=== PATIENT | male | born 1940 ===

== ENCOUNTER → 2017-07-17 | Outpatient (CLI) | payer MEDICARE ==
[~2017-07-17] MED LIST: ALLO100 PO; AMLO10 PO; ASPI81CH PO; CEPH250A; CEPH250A PO; CEPH500; CHOL10002 PO; CLON.1 PO; FISH1000 PO; FOSI10; FURO20 PO; FURO40 PO; GLIP5 PO; Humalog100 UNIT/1 SC; IBUP800; INS70/30I; INSU7030P; K-Tab10 MEQ PO; LOSA50 PO; METF500; METF500 PO; Prinivil10 MG PO; TOUJEO SOL300 UNIT/1 SC; Zithromax250 MG PO; [UNRECOGNIZED DRUG - OTHER]
[2017-07-17 12:36] LABS: Hematocrit 35.3 % (37.0-53.0); Hemoglobin 11.7 g/dL (13.5-17.5)
[2017-07-17 14:25] LABS: Creatinine, Urine Random 54.2 mg/dL (27.00-270.00)
[2017-07-17 14:33] LABS: Protein, Urine Random 314.8 mg/dL (0.0-11.9)
[2017-07-17 15:22] LABS: Anion Gap 10 mmol/L (6-16); Blood Urea Nitrogen 60 mg/dL (8-24); Bun/Creatinine Ratio 22.3 (12.0-20.0); CO2, Blood 24 mmol/L (21-32); Calcium, Blood 8.3 mg/dL (8.5-10.1); Chloride, Blood 102 mmol/L (98-108); Creatinine, Blood 2.69 mg/dL (0.60-1.20); Glomerular Filtration Rate 25 (60-); Glucose, Blood 278 mg/dL (70-99); Phosphorus, Blood 4.6 mg/dL (2.5-4.9); Potassium, Blood 5.2 mmol/L (3.5-5.5); Sodium, Blood 136 mmol/L (136-145)
== END | disposition home or self-care (01) ==
LOC: OLS 12:08
PROVIDERS: Internal Medicine
DX: N18.3 Chronic kidney disease, stage 3 (moderate) (principal); D63.1 Anemia in chronic kidney disease; E55.9 Vitamin D deficiency, unspecified; N25.81 Secondary hyperparathyroidism of renal origin
CPT/HCPCS: 36415; 80069; 82306; 82570; 83970; 84156; 85014; 85018

== ENCOUNTER 2019-01-11 09:44 | Day surgery (SDC) | payer MEDICARE ==
[~2019-01-11] VITALS: Ht 170.2 cm; Wt 80.3 kg
[~2019-01-11 09:44] MED LIST changes: +Aspirin EC81 MG PO; +METO25ER PO; +Norvasc10 MG PO; +TORSE20 PO; +VITAMIN D32000 UNI1 PO
--- NOTE | 2019-01-11 14:01 | NUR ---
01/11/19 1401 Flora Puri PT WAS GIVEN RX W/INSTRUCTIONS BUT STATED WASNT GOING TO FILL IT. GIVEN ICE PACK AND SLING AND PUT ON HIM W/INSTRUCTIONS FOR USE. THROUGH SPEAKING W/PT HE APPEARED TO WANT TO DO HIS OWN THING. CAREGIVER CAROLA WAS PRESENT FOR INSTRUCTIONS WELL
== END 2019-01-11 12:55 | disposition home or self-care (01) ==
LOC: ORSCSDS 09:44
PROVIDERS: Orthopaedic Surgery
PROC: 0LB80ZZ Excision of Left Hand Tendon, Open Approach (ICD-10-PCS; principal; 2019-01-11 11:00)
DX: M67.442 Ganglion, left hand (principal); E11.40 Type 2 diabetes mellitus with diabetic neuropathy, unspecified; E11.22 Type 2 diabetes mellitus with diabetic chronic kidney disease; I12.9 Hypertensive chronic kidney disease with stage 1 through stage 4 chronic kidney disease, or unspecified chronic kidney disease; N18.4 Chronic kidney disease, stage 4 (severe); Z79.4 Long term (current) use of insulin; Z79.899 Other long term (current) drug therapy
CPT/HCPCS: 82947; 88304; J0690; J2250; J2405; J7030; J7120

== ENCOUNTER 2020-03-04 11:12 | Day surgery (SDC) | payer MEDICARE ==
[~2020-03-04] VITALS: Ht 165.1 cm; Wt 77.0 kg
[~2020-03-04 11:12] MED LIST changes: +CALCITRIOL0.25 MC1 PO; +HYDR10; +TOUJEO SOL300 UNIT/2 SQ
--- NOTE | 2020-03-04 11:53 | NUR ---
CBG 81 POST ORANGE JUICE. -LIGHTHEADEDNESS AT THIS TIME.
--- NOTE | 2020-03-04 14:10 | NUR ---
TO RECOVERY ROOM VIA RECLINER. PT AWAKE AND ALERT. PERMA CATH SITE DRY AND INTACT.
--- NOTE | 2020-03-04 14:30 | NUR ---
EATING LUNCH. SITE UNCHANGED.
--- NOTE | 2020-03-04 15:00 | NUR ---
DISCHARGE INSTRUCTIONS GIVEN WITH VERBAL AND WRITTEN UNDERSTANDING.
--- NOTE | 2020-03-04 15:15 | NUR ---
DRESSING FOR DISCHARGE. IV REMOVED INTACT. 2X2, COBAN AND MANUAL PRESSURE APPLIED. PERMACATH DRESSING DRY AND INTACT.
--- NOTE | 2020-03-04 15:30 | NUR ---
DISCHARGED HOME VIA WHEELCHAIR. FRIEND DRIVING.
== END 2020-03-04 15:30 | disposition home or self-care (01) ==
LOC: MHTC 11:12
DX: I12.0 Hypertensive chronic kidney disease with stage 5 chronic kidney disease or end stage renal disease (principal); E11.22 Type 2 diabetes mellitus with diabetic chronic kidney disease; N18.6 End stage renal disease; E78.5 Hyperlipidemia, unspecified; E11.40 Type 2 diabetes mellitus with diabetic neuropathy, unspecified; Z87.891 Personal history of nicotine dependence; Z88.8 Allergy status to other drugs, medicaments and biological substances; Z79.82 Long term (current) use of aspirin; Z79.899 Other long term (current) drug therapy; Z79.4 Long term (current) use of insulin
CPT/HCPCS: 36558; 76937; 77001; 82947; 99152; C1750; C1769; C1894; J1644; J2250; J3010; J7030; J7042

== ENCOUNTER 2020-06-24 13:37 | Day surgery (SDC) | payer MEDICARE ==
[~2020-06-24] VITALS: Ht 165.1 cm; Wt 76.0 kg
[~2020-06-24 13:37] MED LIST changes: +GABA100 PO; +HUMALOG100 UNIT/1 SC; -HYDR10; +HYDR10 PO
[2020-06-24 14:08] LABS: BASOPHILS ABSOLUTE AUTO 0.04 K/mm3 (0.00-0.23); BASOPHILS PERCENT AUTO 1 % (0-2); EOSINOPHILS ABSOLUTE AUTO 0.37 K/mm3 (0.00-0.68); EOSINOPHILS PERCENT AUTO 6 % (0-6); Hemoglobin 12.2 g/dL (13.5-17.5); IMMATURE GRAN ABSOLUTE AUTO 0.04 K/mm3 (0.00-0.10); IMMATURE GRAN PERCENT AUTO 1 % (0-1); LYMPHOCYTES ABSOLUTE AUTO 1.17 K/mm3 (0.84-5.20); LYMPHOCYTES PERCENT AUTO 17 % (21-46); MONOCYTES PERCENT AUTO 9 % (4-13); Mean Corpuscular HGB 34.5 pg (26.0-34.0); Mean Corpuscular HGB Conc 33.9 g/dL (31.5-36.5); Mean Corpuscular Volume 102 fL (80-100); Mean Platelet Volume 9.5 fL (9.1-12.4); NEUTROPHILS ABSOLUTE AUTO 4.53 K/mm3 (1.96-9.15); NEUTROPHILS PERCENT AUTO 67 % (41-73); Platelet Count 237 K/mm3 (150-400); RDW Coefficient Variation 13.2 % (11.7-14.2); RDW Standard Deviation 49.6 fL (35.1-46.3); Red Blood Cell Count 3.54 M/mm3 (4.30-5.90); White Blood Cell Count 6.75 K/mm3 (4.00-11.30)
[2020-06-24 14:22] LABS: Bun/Creatinine Ratio 13.7 (12.0-20.0); Calcium, Blood 9.2 mg/dL (8.5-10.1); Creatinine, Blood 4.24 mg/dL (0.60-1.20)
[2020-06-24 14:24] LABS: International Normalized Ratio 0.95; Prothrombin Time Results 10.2 Sec (9.7-11.5)
[2020-06-24] MEDS ORDERED: CLOP75 PO (16:20)
--- NOTE | 2020-06-24 16:39 | NUR ---
PT VERBALIZED UNDERSTANDING OF D/C INSTRUCTIONS. PAPERWORK PROVIDED IN FOLDER ALONG WITH ORDER FOR FOLLOW UP ULTRASOUND. NEW PRESCRIPTION CALLED INTO PHARMACY. PT LEFT ARM PLACED INTO SLING ORDERED. ASSISTED WITH GETTING DRESSED, TAKEN OUT TO PRIVATE VEHICLE VIA W/C. NO ACUTE DISTRESS NOTED. VSS.
--- NOTE | 2020-06-24 16:45 | NUR ---
IV REMOVED FROM RAC WITH CATH INTACT, PRESSURE DRESSING APPLIED.
== END 2020-06-24 16:20 | disposition home or self-care (01) ==
LOC: MHTC 13:37
PROVIDERS: Radiology Diagnostic Radiology
DX: I12.0 Hypertensive chronic kidney disease with stage 5 chronic kidney disease or end stage renal disease (principal); E11.22 Type 2 diabetes mellitus with diabetic chronic kidney disease; N18.6 End stage renal disease; Z99.2 Dependence on renal dialysis; E11.40 Type 2 diabetes mellitus with diabetic neuropathy, unspecified; E78.5 Hyperlipidemia, unspecified; M10.9 Gout, unspecified; M19.90 Unspecified osteoarthritis, unspecified site; Z87.891 Personal history of nicotine dependence; Z88.8 Allergy status to other drugs, medicaments and biological substances
CPT/HCPCS: 64415; 80048; 82947; 85025; 85610; A9270; C1725; C1769; C1889; C1894; G2170; J2250; J3010; J7042

== ENCOUNTER → 2020-06-30 | Outpatient (CLI) | payer MEDICARE ==
[~2020-06-30] MED LIST changes: +Acetaminophen325 M1 PO; +BASAGLAR K100 UNIT/1 SC; +CLOP75 PO; +LOSA25 PO; +RENVELA800 MG PO; +Rena-Vite Tabl0.8 MG PO; +TOUJEO SOL300 UNIT/2 SC
== END | disposition home or self-care (01) ==
LOC: LAB SHORT 08:37 → LAB 08:37
DX: Z03.89 Encounter for observation for other suspected diseases and conditions ruled out (principal)
CPT/HCPCS: 89060

== ENCOUNTER 2020-08-20 11:36 | Inpatient (IN) | payer MEDICARE ==
[~2020-08-20] VITALS: Ht 167.6 cm; Wt 77.2 kg
[~2020-08-20 11:36] MED LIST changes: -Acetaminophen325 M1 PO; -BASAGLAR K100 UNIT/1 SC; -LOSA25 PO; -RENVELA800 MG PO; -Rena-Vite Tabl0.8 MG PO; -TOUJEO SOL300 UNIT/2 SC
[2020-08-20] MEDS ORDERED: BASAGLAR K100 UNIT/1 SC (12:05)
[2020-08-20] MEDS ORDERED: LOSA25 PO (12:06)
[2020-08-20] MEDS ORDERED: METO25ER PO (12:07)
[2020-08-20 13:47] LABS: BASOPHILS ABSOLUTE AUTO 0.04 K/mm3 (0.00-0.23); BASOPHILS PERCENT AUTO 1 % (0-2); EOSINOPHILS PERCENT AUTO 2 % (0-6); Hematocrit 32.3 % (37.0-53.0); Hemoglobin 10.6 g/dL (13.5-17.5); IMMATURE GRAN ABSOLUTE AUTO 0.01 K/mm3 (0.00-0.10); IMMATURE GRAN PERCENT AUTO 0 % (0-1); LYMPHOCYTES ABSOLUTE AUTO 0.71 K/mm3 (0.84-5.20); LYMPHOCYTES PERCENT AUTO 12 % (21-46); MONOCYTES ABSOLUTE AUTO 0.58 K/mm3 (0.16-1.47); MONOCYTES PERCENT AUTO 10 % (4-13); Mean Corpuscular HGB 35.2 pg (26.0-34.0); Mean Corpuscular HGB Conc 32.8 g/dL (31.5-36.5); Mean Corpuscular Volume 107 fL (80-100); Mean Platelet Volume 10.1 fL (9.1-12.4); NEUTROPHILS ABSOLUTE AUTO 4.55 K/mm3 (1.96-9.15); NEUTROPHILS PERCENT AUTO 76 % (41-73); Platelet Count 242 K/mm3 (150-400); RDW Coefficient Variation 15.3 % (11.7-14.2); RDW Standard Deviation 59.9 fL (35.1-46.3); Red Blood Cell Count 3.01 M/mm3 (4.30-5.90); White Blood Cell Count 5.99 K/mm3 (4.00-11.30)
[2020-08-20 14:09] LABS: Albumin, Blood 3.1 g/dL (3.4-5.0); Albumin/Globulin Ratio 0.9 (0.8-1.8); Bilirubin, Total 0.6 mg/dL (0.1-1.0); Bun/Creatinine Ratio 10.5 (12.0-20.0); Calcium, Blood 9.3 mg/dL (8.5-10.1); Creatinine, Blood 4.29 mg/dL (0.60-1.20); Globulin, Blood 3.6 g/dL (2.2-4.0); Potassium, Blood 3.9 mmol/L (3.5-5.5); Total Protein, Blood 6.7 g/dL (6.4-8.2); Troponin I 0.188 ng/mL (0.000-0.040)
[2020-08-20] MEDS ORDERED: Rena-Vite Tabl0.8 MG PO (17:08)
--- NOTE | 2020-08-20 18:42 | NUR ---
PATIENT ARRIVES TO FLOOR ABOUT 1630. ALERT. ORIENTED. PICS TAKEN OF WOUNDS TO FEET.HAD WORSENING SOB WHILE AT DIALYSIS AND ONLY FINISHED 1/2 OF TREATMENT. FISTULA LEFT A/C WITH GOOD THRILL. AYANA Garcia. TELE ON AND PER TECH SR 83 WITH SOME PVC'S. CBG AC/HS. HX ; D.M, ESRD, DIALYSIS ABOUT 3 MONTHS AND ACUTE ON CHRONIC CHF. TROP 0.188 AND SUPPOSE TO REPEAT. HAS NEUROPATHY BLE. PLEASANT. VERY TALKATIVE. HAS STATED AFTER HE SEES HIS FIRST GRANDCHILD NEXT WEEK HE WILL BE STOPPING DIALYSIS. TM
--- NOTE | 2020-08-21 04:00 | NUR ---
PLODDER OPERATOR SUMMARY PT A/O X4. AMBULATES WITH SBA WITH FWW TO BATHROOM. PT STATED HE HAD A HARD TIME BREATHING FOR A FEW MIN WHILE LAYING DOWN FLAT TOWARDS BEGINNING OF THE SHIFT. ONCE PT SAT UP, PT NO LONGER FELT SOB. PT SLEPT WELL. DENIES CHEST PAIN, OTHER PAINS, AND NAUSEA. SHIPWRIGHT HELPER NOTIFIED NURSE THAT PT HAD 12-15 BEATS OF V.TACH. AROUND 0353. PT WAS ASLEEP WHEN THIS HAPPENED. MORNING VITALS TAKEN. VSS. BED ALARM ON, CALL LIGHT WITHIN REACH.
[2020-08-21 07:22] LABS: Hematocrit 29.9 % (37.0-53.0); Mean Corpuscular HGB 35.6 pg (26.0-34.0); Mean Corpuscular HGB Conc 33.4 g/dL (31.5-36.5); Mean Corpuscular Volume 106 fL (80-100); Mean Platelet Volume 10.1 fL (9.1-12.4); Platelet Count 234 K/mm3 (150-400); RDW Standard Deviation 58.3 fL (35.1-46.3); Red Blood Cell Count 2.81 M/mm3 (4.30-5.90); White Blood Cell Count 6.78 K/mm3 (4.00-11.30)
[2020-08-21 07:33] LABS: Albumin, Blood 3.1 g/dL (3.4-5.0); Albumin/Globulin Ratio 0.9 (0.8-1.8); Bilirubin, Total 0.7 mg/dL (0.1-1.0); Bun/Creatinine Ratio 10.8 (12.0-20.0); Calcium, Blood 9.5 mg/dL (8.5-10.1); Creatinine, Blood 5.36 mg/dL (0.60-1.20); Globulin, Blood 3.4 g/dL (2.2-4.0); Magnesium, Blood 2.6 mg/dL (1.6-2.4); Potassium, Blood 4.1 mmol/L (3.5-5.5); Total Protein, Blood 6.5 g/dL (6.4-8.2); Troponin I 0.234 ng/mL (0.000-0.040)
--- NOTE | 2020-08-21 15:58 | NUR ---
PATIENT IS PLEASANT AND COOPERATIVE WITH STAFF. VITALS REMAIN STABLE EVEN WITH DIALYSIS TODAY. ALERT AND ORIENTED BUT A BIT FORGETFUL AND SOME ANXIETY NOTED. PATIENT CONTINUES TO RECIEVE IV LASIX TO REMOVE FLUID OFF OF HIM AND IS TOLERATING WELL. CALLS FOR STAFF ASSIST NEEDED. PATIENT NOTED TO HAVE PVC's ESPECIALLY WHEN HAVING HACKING COUGHING SPELLS; DR JEREZ NOTIFIED OF THIS. PATIENT RETURNED TO HIS ROOM ABOUT 15 MINUTES AGO FROM DIALYSIS AND IS DOING WELL. PATIENT TALKING TO HIS FRIEND ON THE PHONE. NO OTHER ACUTE CHANGES TO REPORT OF AT THIS TIME. CALL LIGHT IS WITHIN REACH.
[2020-08-22 06:19] LABS: Albumin, Blood 3.2 g/dL (3.4-5.0); Anion Gap 10 mmol/L (6-16); Blood Urea Nitrogen 50 mg/dL (8-24); Bun/Creatinine Ratio 10.7 (12.0-20.0); CO2, Blood 29 mmol/L (21-32); Calcium, Blood 9.1 mg/dL (8.5-10.1); Chloride, Blood 95 mmol/L (98-108); Creatinine, Blood 4.69 mg/dL (0.60-1.20); Glomerular Filtration Rate 13 (60-); Glucose, Blood 74 mg/dL (70-99); Potassium, Blood 3.8 mmol/L (3.5-5.5); Sodium, Blood 134 mmol/L (136-145); Troponin I 0.164 ng/mL (0.000-0.040)
--- NOTE | 2020-08-22 06:39 | NUR ---
SHIFT SUMMARY PT IS A 80 Y/O MALE, ADMITTED FOR ELEVATED TROPONINS. HE IS A&O X 4, 1PA TO THE BATHROOM. PT DENIED ANY CHEST PAIN OR PRESSURE, BUT DID REPORT INTERMITTENT SOB AND COUGH. VITAL SIGNS STABLE. TELE SHOWED NSR C BBB & PVC @ 77. NO C/O ACUTE PAIN OR NAUSEA. NO ACUTE CHANGES IN PT CONDITION NOTED. WILL CONTINUE TO MONITOR AND TREAT PER EMAR UNTIL HAND OFF TO DAY SHIFT RN.
--- NOTE | 2020-08-22 08:02 | NUR ---
CALLED DR JEREZ AND INFORMED OF L FOOT 2ND TOE NECROTIC BLACK AREA AND DUSKY FOOT. SHE STATES SHE WILL COME TO BS AND ASSESS. ALSO INFORMED OF LOW CBG OF 42, SHE WANTS MORNING LONG ACTING INSULIN HELD, WE WILL REASSESS LATER THIS AFTERNOON
--- NOTE | 2020-08-22 13:15 | NUR ---
DISCHARGE SUMMARY DR JEREZ CAME AND ASSESSED PT'S FOOT, SHE STATES THAT EVEN THOUGH PT'S FOOT IS DUSKY, BECAUSE SHE CAN PALPATE PULSES, HE CAN JUST FOLLOW UP WITH DR WALTER P[facility] SCHEDULED FOR LATER THIS COMING WEEK. PT STATES HE HAS NEW PT APPT WITH [facility] THIS COMING END OF AUGUST ALREADY. R CHEST PERMACATH C/D/I, HAD DIALYSIS THIS MORNING. PIV REMOVED, PAPERWORK REVIEWED. MEDS WERE NOT FAXED, THERE WERE NO NEW MEDS PRESCRIBED. F/U APPTS ALREADY IN PLACE. EDUCATED ON IMPORTANCE OF CHECKING CBGS AND CUTTING BACK ON LANTUS DUE TO LOW BLOOD SUGARS.
== END 2020-08-22 13:45 | disposition home or self-care (01) | DRG 291 ==
LOC: ER 11:36 → MEDS 11:37 → EDBEDREQ 16:16 → MEDS 08-21 19:01
PROVIDERS: Emergency Medicine; ADMIT Internal Medicine
DX: I13.2 Hypertensive heart and chronic kidney disease with heart failure and with stage 5 chronic kidney disease, or end stage renal disease (principal); I50.23 Acute on chronic systolic (congestive) heart failure; N18.6 End stage renal disease; E11.22 Type 2 diabetes mellitus with diabetic chronic kidney disease; D63.1 Anemia in chronic kidney disease; I95.9 Hypotension, unspecified; E11.51 Type 2 diabetes mellitus with diabetic peripheral angiopathy without gangrene; E11.40 Type 2 diabetes mellitus with diabetic neuropathy, unspecified; Z95.1 Presence of aortocoronary bypass graft; Z99.2 Dependence on renal dialysis; Z79.4 Long term (current) use of insulin; Z79.82 Long term (current) use of aspirin; Z87.891 Personal history of nicotine dependence
CPT/HCPCS: 36415; 71045; 80053; 80069; 82947; 83735; 83880; 84484; 85025; 85027; 85379; 93005; 93010; 93306; 96372; 96374; 96376; 99285-25; A9270; G0378; J1644; J1940

== ENCOUNTER 2020-09-01 14:22 | Inpatient (IN) | payer MEDICARE ==
[~2020-09-01] VITALS: Ht 167.6 cm; Wt 74.3 kg
[~2020-09-01 14:22] MED LIST changes: +BASAGLAR K100 UNIT/1 SC; +LOSA25 PO; +Rena-Vite Tabl0.8 MG PO
[2020-09-01 15:46] LABS: BASOPHILS ABSOLUTE AUTO 0.02 K/mm3 (0.00-0.23); BASOPHILS PERCENT AUTO 0 % (0-2); EOSINOPHILS ABSOLUTE AUTO 0.17 K/mm3 (0.00-0.68); EOSINOPHILS PERCENT AUTO 3 % (0-6); Hematocrit 36.2 % (37.0-53.0); IMMATURE GRAN ABSOLUTE AUTO 0.04 K/mm3 (0.00-0.10); IMMATURE GRAN PERCENT AUTO 1 % (0-1); LYMPHOCYTES ABSOLUTE AUTO 0.62 K/mm3 (0.84-5.20); LYMPHOCYTES PERCENT AUTO 10 % (21-46); MONOCYTES ABSOLUTE AUTO 0.76 K/mm3 (0.16-1.47); MONOCYTES PERCENT AUTO 12 % (4-13); Mean Corpuscular HGB 35.3 pg (26.0-34.0); Mean Corpuscular HGB Conc 33.1 g/dL (31.5-36.5); Mean Corpuscular Volume 107 fL (80-100); Mean Platelet Volume 11.2 fL (9.1-12.4); NEUTROPHILS ABSOLUTE AUTO 4.81 K/mm3 (1.96-9.15); NEUTROPHILS PERCENT AUTO 75 % (41-73); Platelet Count 187 K/mm3 (150-400); RDW Coefficient Variation 16.1 % (11.7-14.2); RDW Standard Deviation 62.2 fL (35.1-46.3); White Blood Cell Count 6.42 K/mm3 (4.00-11.30)
[2020-09-01 15:55] LABS: Albumin, Blood 3.2 g/dL (3.4-5.0); Albumin/Globulin Ratio 0.8 (0.8-1.8); Bilirubin, Total 0.9 mg/dL (0.1-1.0); Creatinine, Blood 3.23 mg/dL (0.60-1.20); Globulin, Blood 3.8 g/dL (2.2-4.0); Potassium, Blood 3.5 mmol/L (3.5-5.5)
[2020-09-01 18:04] LABS: International Normalized Ratio 1.04; Prothrombin Time Results 11.1 Sec (9.7-11.5)
[2020-09-01] MEDS ORDERED: TOUJEO SOL300 UNIT/2 SC (18:35)
[2020-09-01] MEDS ORDERED: RENVELA800 MG PO (18:36)
[2020-09-01] MEDS ORDERED: TORSE20 PO (19:18)
--- NOTE | 2020-09-01 22:57 | NUR ---
ADMITTED 80 YR OLD MALE TO FLOOR FROM THE ED WITH DX OF GANGRENE OF LEFT 2ND TOE. IVF OF HEPARIN DRIP AT 19.2 INTO ONE SITE AND IVF INTO ANOTHER SITE OF RIGHT ARM. HX DIALYSIS - FISTULA OF LEFT ARM. STATED HAD DIALYSIS EARLIER TO DAY, AND HAS IT TUESDAYS, THURSDAYS AND SATURDAYS. ORIENTED TO USE OF BED CONTROL AND CALL LIGHT. CALL LIGHT IN REACH.
[2020-09-02 02:01] LABS: BASOPHILS ABSOLUTE AUTO 0.03 K/mm3 (0.00-0.23); BASOPHILS PERCENT AUTO 1 % (0-2); EOSINOPHILS ABSOLUTE AUTO 0.17 K/mm3 (0.00-0.68); EOSINOPHILS PERCENT AUTO 3 % (0-6); Hematocrit 31.2 % (37.0-53.0); Hemoglobin 10.7 g/dL (13.5-17.5); IMMATURE GRAN ABSOLUTE AUTO 0.02 K/mm3 (0.00-0.10); IMMATURE GRAN PERCENT AUTO 0 % (0-1); LYMPHOCYTES ABSOLUTE AUTO 0.58 K/mm3 (0.84-5.20); LYMPHOCYTES PERCENT AUTO 10 % (21-46); MONOCYTES ABSOLUTE AUTO 0.86 K/mm3 (0.16-1.47); MONOCYTES PERCENT AUTO 14 % (4-13); Mean Corpuscular HGB 36.3 pg (26.0-34.0); Mean Corpuscular HGB Conc 34.3 g/dL (31.5-36.5); Mean Corpuscular Volume 106 fL (80-100); Mean Platelet Volume 10.9 fL (9.1-12.4); NEUTROPHILS ABSOLUTE AUTO 4.45 K/mm3 (1.96-9.15); NEUTROPHILS PERCENT AUTO 73 % (41-73); Platelet Count 158 K/mm3 (150-400); RDW Coefficient Variation 15.9 % (11.7-14.2); Red Blood Cell Count 2.95 M/mm3 (4.30-5.90); White Blood Cell Count 6.11 K/mm3 (4.00-11.30)
[2020-09-02 02:18] LABS: Anion Gap 6 mmol/L (6-16); Blood Urea Nitrogen 33 mg/dL (8-24); Bun/Creatinine Ratio 8.3 (12.0-20.0); CO2, Blood 34 mmol/L (21-32); Calcium, Blood 8.6 mg/dL (8.5-10.1); Chloride, Blood 94 mmol/L (98-108); Creatinine, Blood 3.96 mg/dL (0.60-1.20); Glomerular Filtration Rate 16 (60-); Glucose, Blood 265 mg/dL (70-99); Potassium, Blood 3.4 mmol/L (3.5-5.5); Sodium, Blood 134 mmol/L (136-145); Vancomycin, Random 21.6 ug/mL
--- NOTE | 2020-09-02 03:19 | NUR ---
LAB CALLED EARLIER WITH ELEVATED PTT (123.6), PHARMACY WAS NOTIFIED AND PER MD ORDERS, ADJUSTED HEPARIN DOSAGE, HEPARIN WAS PUT ON HOLD FOR AN HOUR AND WILL BE CHANGEDTO 11 U OR 16.3 ML/HR WHEN RESTARTED. CALL LIGHT IN REACH
[2020-09-02 05:55] LABS: Influenza A, PCR NEGATIVE (NEGATIVE); Influenza B, PCR NEGATIVE (NEGATIVE); Resp Syncytial Virus, PCR NEGATIVE (NEGATIVE); SARS-Cov-2 (COVID-19) PCR, MMC NEGATIVE (NEGATIVE)
--- NOTE | 2020-09-02 06:06 | NUR ---
SHIFT SUMMARY ADMITTED TO FLOOR LAST NIGHT WITH GANGRENE TOE. HEPARIN DRIP WAS CHANGED FORM 19.2 ML/HR TO 16.3 ML/HR DUE TO ELEVATED PTT LEVEL - SEE LABS. HAS BEEN NPO SINCE ABOUT MIDNIGHT FOR POSSIBLE SURGICAL PROCEDURE ON SAID TOE TODAY. CALL LIGHT IN REACH. HAS BEEN RESTING QUIETLY AT INTERVALS SINCE HS.
--- NOTE | 2020-09-02 08:00 | NUR ---
TO ADJUST B.P. MEDS
--- NOTE | 2020-09-02 11:38 | NUR ---
UPDATED DAUGHTER, MIHIR, ON CONDITION AND PROCEDURES PENDING.
--- NOTE | 2020-09-02 11:39 | NUR ---
LEFT MESSAGE ON RAHEL SIERRA, VOICE MAIL THAT PATIENTS DAUGHTER, MIHIR, WOULD LIKE PERHAPS HOME HEALTH ON D'C.
--- NOTE | 2020-09-02 14:15 | NUR ---
DIALYSIS: 1 SET OF BLOOD CULTURE DRAWN FROM CVC PORT PER PROTOCOL. CVC LINE WNL.
--- NOTE | 2020-09-02 16:22 | NUR ---
ALERT. ORIENTED. PICS TAKEN OF FEET AND DRESSINGS PER . HEPARIN INFUSING. PER HUGO HOFFMANN PATIENT TO HAVE PROCEDURE TOMORROW MORNING, SO NPO AFTER MIDNITE. PLEASANT, COOPERATIVE. FISTULA LEFT ARM WITH THRILL. USES URINAL AT BEDSIDE. UNLABORED RESPIRATIONS. WCTM TILL GIVE REPORT TO KELLY SIERRA
--- NOTE | 2020-09-02 18:21 | NUR ---
RECEIVED REPORT AND PT AT 1700 FROM CAROLYN SIERRA. PT PLEASANT COOP A/O. WATCHING TV. DISCUSSED REVASCULAR PROCEDURE TOMORROW IN AM. DISCUSSED TO BE NPO THIS MIDNITE FOR PROCEDURE. PT STATES UNDERSTANDS. NO NEW CONCERNS AT T HIS TIME. BED IN LOW POSITION, CALL LTE IN REACH, CALLS APROP
--- NOTE | 2020-09-02 19:40 | NUR ---
ASSUMPTION OF CARE. AOX3, COOPERATIVE, NO PAIN. LS CLEAR. HR IRREGULAR WITH A SLIGHT MURMUR. DENIES ANY CHEST PAIN OR DIZZINESS. REGULAR BM. URINATING A LITTLE AT A TIME. 100 DARK YELLOW URINE OUT SO FAR THIS SHIFT. PERMA CATH TO RIGHT UPPER CHEST CDI. FISTULA TO LEFT ARM. HEPARIN INFUSING. SCRATCHED SORE ON CHIN ABOUT 20 20 MINUTES AGO THAT IS STILL BLEEDING SLIGHTLY, COVERED WITH BANDAID. DRESSING CHANGES TO FEET PER ORDERS. PLEASE SEE ASSESSMENT. CALL LIGHT IS IN REACH.
--- NOTE | 2020-09-02 21:28 | NUR ---
ATTEMPTED TO PULL LABS FROM POWERGLIDE. IT IS NOT FLUSHING OR PULLING BACK. ATTEMPTED TO TRY TO GET IT TO WORK WITH NO SUCCESS. WILL TALK TO CHARGE.
--- NOTE | 2020-09-02 21:51 | NUR ---
UNABLE TO GET LINE PATENT. REMOVED POWERGLIDE.
[2020-09-03 05:08] LABS: BASOPHILS ABSOLUTE AUTO 0.04 K/mm3 (0.00-0.23); BASOPHILS PERCENT AUTO 1 % (0-2); EOSINOPHILS ABSOLUTE AUTO 0.16 K/mm3 (0.00-0.68); EOSINOPHILS PERCENT AUTO 3 % (0-6); Hematocrit 31.4 % (37.0-53.0); Hemoglobin 10.4 g/dL (13.5-17.5); IMMATURE GRAN ABSOLUTE AUTO 0.03 K/mm3 (0.00-0.10); IMMATURE GRAN PERCENT AUTO 1 % (0-1); LYMPHOCYTES ABSOLUTE AUTO 0.57 K/mm3 (0.84-5.20); LYMPHOCYTES PERCENT AUTO 9 % (21-46); MONOCYTES ABSOLUTE AUTO 0.92 K/mm3 (0.16-1.47); MONOCYTES PERCENT AUTO 15 % (4-13); Mean Corpuscular HGB 35.3 pg (26.0-34.0); Mean Corpuscular HGB Conc 33.1 g/dL (31.5-36.5); Mean Corpuscular Volume 106 fL (80-100); Mean Platelet Volume 10.4 fL (9.1-12.4); NEUTROPHILS ABSOLUTE AUTO 4.63 K/mm3 (1.96-9.15); NEUTROPHILS PERCENT AUTO 73 % (41-73); Platelet Count 177 K/mm3 (150-400); RDW Coefficient Variation 15.7 % (11.7-14.2); RDW Standard Deviation 61.8 fL (35.1-46.3); Red Blood Cell Count 2.95 M/mm3 (4.30-5.90); White Blood Cell Count 6.35 K/mm3 (4.00-11.30)
[2020-09-03 05:35] LABS: Albumin, Blood 2.8 g/dL (3.4-5.0); Anion Gap 6 mmol/L (6-16); Blood Urea Nitrogen 37 mg/dL (8-24); Bun/Creatinine Ratio 7.3 (12.0-20.0); CO2, Blood 34 mmol/L (21-32); Calcium, Blood 9.2 mg/dL (8.5-10.1); Chloride, Blood 94 mmol/L (98-108); Creatinine, Blood 5.09 mg/dL (0.60-1.20); Glomerular Filtration Rate 12 (60-); Glucose, Blood 280 mg/dL (70-99); Magnesium, Blood 2.4 mg/dL (1.6-2.4); Phosphorus, Blood 5.3 mg/dL (2.5-4.9); Potassium, Blood 3.6 mmol/L (3.5-5.5); Sodium, Blood 134 mmol/L (136-145)
--- NOTE | 2020-09-03 06:36 | NUR ---
SHIFT SUMMARY: AOX3, 1 ASSIST TO BATHROOM, USES URINAL. DRESSING TO FEET WERE RE-DRESSED LAST NIGHT PER ORDERS. POWERGLIDE IN RIGHT UPPER ARM WAS NOT PATENT SO IT WAS REMOVED. SCRATCH ON FACE CONTINUED TO BLEED SLOWLY OVER SEVERAL HOURS THEN STOPPED. HE PULLED OUT HIS IV LINE WHICH CAUSED BLEEDING ALL OVER DUE TO HEPARIN DRIP. APPLIED PRESSURE DRESSING WHICH STOPPED THE BLEEDING. WHEN THIS HAPPENED HE HIT HIS TOES ON HIS LEFT FOOT TEARING OFF THE DRESSING AND RIPPING PART OF THE SKIN ON THE 2ND TOE ON THE LEFT FOOT. RE-DRESSED FOOT. NEW POWERGLIDE PLACED IN RIGHT UPPER ARM, HEPARIN STILL INFUSING PER ORDERS. SLEPT REST OF NIGHT. NPO AFTER MIDNIGHT FOR PROCEDURE. VS WNL, AFEBRILE. CALL LIGHT IS IN REACH.
--- NOTE | 2020-09-03 13:06 | NUR ---
0957 PT TO [employer] ARCHITECT FOR PROCEDURE, HEPARIN DRIP STOPPED WHEN RN FROM [employer] [facility]CH[facility] ARRIVED. REPORT GIVEN TO PER DIEM CLERK RASHI PRIOR TO PT ARRIVING TO PCU. BELONGINGS TAKEN TO PCU 4 ONCE ROOM WAS ASSIGNED. DRESSINGS TO BILATERAL FEET C/D/I THIS AM. NO OTHER CHANGES OR CONCERNS.
--- NOTE | 2020-09-03 14:15 | NUR ---
Call from [facility] in heart center regarding my inquiry into lack of orders post op today. States that Dr. Mai is going to put them in after his next case. As to the heparin gtt, Dr. Mai reportedly is leaving that up to the ic design manager. If no surgery planned, then he will put in orders for oral anticoagulation.
--- NOTE | 2020-09-03 16:57 | NUR ---
Pt to dialysis at 1430. He is still in Dialysis at this time.
[2020-09-03 17:57] LABS: Vancomycin, Random 6.7 ug/mL
--- NOTE | 2020-09-03 18:32 | NUR ---
Pt needed to void; Called using call light to request assist to stand and use urinal. Right groin site remains without bleeding, bruising, hematoma. he stood at side of bed, voided, and was assisted back to bed. Appeared to have some bleeding of the left foot as bandage noted soiled; however, upon removal of bandage, no active bleeding noted. Pt is saying he is starting to feel slight pain for the first time in his toes of his left foot. Toes cleansed with skintegrity, non adherent bandage around the second digit, and kerlix over the entire toes and foot, secured with kerlix. Assisted back to bed. He has no other needs voiced at this time.
[2020-09-04 03:57] LABS: Hematocrit 28.9 % (37.0-53.0); Hemoglobin 9.6 g/dL (13.5-17.5)
[2020-09-04 04:20] LABS: Albumin, Blood 2.7 g/dL (3.4-5.0); Anion Gap 6 mmol/L (6-16); Blood Urea Nitrogen 28 mg/dL (8-24); Bun/Creatinine Ratio 7.2 (12.0-20.0); CO2, Blood 32 mmol/L (21-32); Calcium, Blood 8.9 mg/dL (8.5-10.1); Chloride, Blood 98 mmol/L (98-108); Creatinine, Blood 3.91 mg/dL (0.60-1.20); Glomerular Filtration Rate 16 (60-); Glucose, Blood 226 mg/dL (70-99); Magnesium, Blood 2.3 mg/dL (1.6-2.4); Potassium, Blood 3.8 mmol/L (3.5-5.5); Sodium, Blood 136 mmol/L (136-145)
--- NOTE | 2020-09-04 05:08 | NUR ---
SHIFT SUMMARY PT WAS ALERT, ORIENTED AND COOPERATIVE WITH CARE. PEDAL PULSES IN R FOOT VERY FAINT, FOUND WITH DOPPLER. L FOOT DRESSING ELISHALEY REDRESSED, DID NOT REMOVE DRESSING TO VISUALIZE FOOT. PT STATED INCREASING PAIN IN L FOOT SINCE INTERVENTION, PAIN WAS CONTROLLED WITH TYLENOL. R GROIN SITE REMAINED UNCHANGED T/O THE SHIFT, SMALL ANOUNT OF BLOOD UNDER DRESSING, 2CM HEMATOMA UPPER RIGHT OF SITE REMAINED UNCHANGED. VITALS WERE STABLE WITH BP 106-121 SYSTOLIC. HR 80'S. O2 SATS >95% ON ROOM AIR. PER REPORT PT NEEDS TO GO HOME WITH HOME HEALTH, THIS NEEDS TO BE RELAYED TO DR. JEREZ PRIOR TO DISCHARGE. PT OTHERWISE HAD A QUIET UNEVENTFUL NIGHT.
--- NOTE | 2020-09-04 10:59 | NUR ---
ALERT AND ORIENTED X4. ON ROOM AIR. TELE SHOWING SINUS RHYTHM WITH FIRST DEGREE HEART BLOCK. HR 70-80'S. DENIES CHEST PAIN. VITAL SIGNS STABLE. COMPLAINS OF SOME PAIN IN LEFT FOOT. MEDICATED PER EMAR. DRESSING CHANGE TO LEFT FOOT AND DRESSING APPLIED TO RIGHT FOOT WOUND. PT ANXIOUS TO GET HOME, ASKING REPETATIVE QUESTIONS ABOUT DISCHARGE. UP TO BATHROOM WITH SBA AND WALKER. CALLING APPROPRIATLY. WILL CONTINUE TO MONITOR.
[2020-09-04] MEDS ORDERED: Acetaminophen325 M1 PO (13:34)
[2020-09-04] MEDS ORDERED: CLOP75 PO (13:35)
--- NOTE | 2020-09-04 14:35 | NUR ---
DISCHARGE: PT REMAINS UNCHANGED FROM LAST NOTE. VITAL SIGNS STABLE. DENIES ANY CHEST PAIN. PAIN IN LEFT FOOT, MEDICATED PER EMAR WITH TYLENOL. AND NEIGHBOR IN TO PICK PATIENT UP. DISCHARGE INSTRUCTIONS REVIEWED AND QUESTIONS ANSWERED. IV REMOVED FOR PROTOCOL. PT TAKEN TO CAR VIA WHEELCHAIR.
== END 2020-09-04 14:06 | disposition home health service (06) | DRG 252 ==
LOC: ER 14:22 → MEDS 14:23 → PCU 09-03 12:35
PROVIDERS: Internal Medicine; Internal Medicine Nephrology; Nurse Practitioner Acute Care; Physician Assistant; ADMIT Hospitalist
PROC: 04HJ3DZ Insertion of Intraluminal Device into Left External Iliac Artery, Percutaneous Approach (ICD-10-PCS; principal; 2020-09-03)
PROC: 047N3DZ Dilation of Left Popliteal Artery with Intraluminal Device, Percutaneous Approach (ICD-10-PCS; 2020-09-03)
PROC: 047L3DZ Dilation of Left Femoral Artery with Intraluminal Device, Percutaneous Approach (ICD-10-PCS; 2020-09-03)
PROC: 04FL3ZZ Fragmentation of Left Femoral Artery, Percutaneous Approach (ICD-10-PCS; 2020-09-03)
PROC: 04FN3ZZ Fragmentation of Left Popliteal Artery, Percutaneous Approach (ICD-10-PCS; 2020-09-03)
PROC: 047Q3ZZ Dilation of Left Anterior Tibial Artery, Percutaneous Approach (ICD-10-PCS; 2020-09-03)
PROC: 047U3ZZ Dilation of Left Peroneal Artery, Percutaneous Approach (ICD-10-PCS; 2020-09-03)
PROC: B41D1ZZ Fluoroscopy of Aorta and Bilateral Lower Extremity Arteries using Low Osmolar Contrast (ICD-10-PCS; 2020-09-03)
DX: E11.52 Type 2 diabetes mellitus with diabetic peripheral angiopathy with gangrene (principal); N18.6 End stage renal disease; L03.116 Cellulitis of left lower limb; M86.172 Other acute osteomyelitis, left ankle and foot; N25.81 Secondary hyperparathyroidism of renal origin; I96 Gangrene, not elsewhere classified; I13.0 Hypertensive heart and chronic kidney disease with heart failure and stage 1 through stage 4 chronic kidney disease, or unspecified chronic kidney disease; I50.22 Chronic systolic (congestive) heart failure; E87.1 Hypo-osmolality and hyponatremia; Z20.822 Contact with and (suspected) exposure to COVID-19; E87.6 Hypokalemia; E11.42 Type 2 diabetes mellitus with diabetic polyneuropathy; D63.1 Anemia in chronic kidney disease; M1A.9XX1 Chronic gout, unspecified, with tophus (tophi); E11.621 Type 2 diabetes mellitus with foot ulcer; L97.519 Non-pressure chronic ulcer of other part of right foot with unspecified severity; E11.22 Type 2 diabetes mellitus with diabetic chronic kidney disease; E11.69 Type 2 diabetes mellitus with other specified complication; Z95.1 Presence of aortocoronary bypass graft; Z98.890 Other specified postprocedural states; Z87.891 Personal history of nicotine dependence; Z95.2 Presence of prosthetic heart valve; Z99.2 Dependence on renal dialysis; Z79.4 Long term (current) use of insulin; Z79.82 Long term (current) use of aspirin; Z79.899 Other long term (current) drug therapy; Z88.8 Allergy status to other drugs, medicaments and biological substances
CPT/HCPCS: 0241U; 36415; 37221; 37228; 37232; 73630; 75625; 75716; 75774; 80048; 80053; 80069; 80202; 82947; 83735; 85014; 85018; 85025; 85347; 85610; 85651; 85730; 86140; 87040; 93922; 96365; 96367; 96375; 96376; 99152; 99153; 99285-25; A9270; C1725; C1751; C1757; C1760; C1769; C1876; C1887; C1894; C9764; G0378; J0881; J1644; J2250; J2543; J3010; J3370; J7030; J7050; Q9967